=== PATIENT | female | born 2000 | race Caucasian/White ===

== ENCOUNTER 2022-03-24 19:51 | Emergency (ER) | payer BC ==
[2022-03-24] MEDS ORDERED: EPINEPHrine 1 MG/ML AMP ONE (20:22)
[2022-03-24] MEDS ORDERED: diphenhydrAMINE 50 MG/ML VIAL ONE (20:32)
[2022-03-24] MEDS ORDERED: methylPREDNISolone Sod Succ/PF 125 MG/2 ML VIAL ONE (20:32)
[2022-03-24] MEDS ORDERED: Famotidine/PF 20 mg/2ml Vial ONE (20:32)
== END 2022-03-24 23:21 | disposition home or self-care (01) ==
LOC: CSHERS 19:51
DX: L50.0 Allergic urticaria (principal)
CPT/HCPCS: 96372; 96374; 96375; J0171; J1200; J2930; S0028